=== PATIENT | female | born 1945 | race American Indian/Alaskan Native ===

== ENCOUNTER 2016-09-05 15:32 | Outpatient (CLI) | payer MEDICARE, OTHER | END 2016-09-05 15:33 | disposition home or self-care (01) | LOC: LABHHL 15:32 | PROVIDERS: ATTEND Surgery | DX: N63 Unspecified lump in breast (principal) | CPT/HCPCS: 88305; 88361 ==

== ENCOUNTER 2016-09-16 10:05 | Outpatient (CLI) | payer MEDICARE ==
--- NOTE | 2016-09-16 11:13 | Ultrasound Report ---
BILATERAL BREAST ULTRASOUND: 09/16/16 10:05:00 CLINICAL: Newly diagnosed right breast cancer. She is not a candidate for breast MRI. COMPARISON: 05/30/16 and 08/02/16 mammograms. FINDINGS: Ultrasound of the right breast(including all four quadrants and the retroareolar area) was performed. An irregular hypoechoic shadowing mass at 5 o'clock 4 cm from the nipple measures 8 x 7 x 8 mm and correlates with the recently diagnosed cancer. No other mass or shadowing in the right breast. Ultrasound of the right axilla demonstrated several lymph nodes with central fat and benign morphology. The largest measures 1.2 x 0.6 x 0.8 cm. Ultrasound of the left breast (including all four quadrants and the retroareolar area) was performed and demonstrated normal fibroglandular and fatty structures. No mass, cyst or shadowing. Ultrasound of the left axilla demonstrated several lymph nodes with central fat and benign morphology. The largest measures 1.9 x 0.5 x 0.8 cm. IMPRESSION: 1. Known right breast cancer at 5 o'clock and no additional suspicious lesion of the right breast. 2. Negative left breast. 3. No suspicious lymph nodes. BI-RADS 6 -- Known Cancer
== END 2016-09-16 10:06 | disposition home or self-care (01) ==
LOC: SPVWC 10:05
PROVIDERS: ATTEND Surgery
DX: C50.311 Malignant neoplasm of lower-inner quadrant of right female breast (principal)

== ENCOUNTER 2016-10-09 07:07 | Day surgery (SDC) | payer MEDICARE ==
--- NOTE | 2016-10-04 14:18 | Anesthesia Consultation ---
Anesthesia Consult and Med Hx Date of service: 10/04/16 - Airway Anesthetic Teeth Evaluation: Partials (upper and lower) ROM Head & Neck: Adequate Mental/Hyoid Distance: Adequate Mallampati Class: Class II Intubation Access Assessment: Probably Good - Pulmonary Exam CTA: Yes - Cardiac Exam Cardiac Exam: RRR - Pre-Operative Health Status ASA Pre-Surgery Classification: ASA3 Proposed Anesthetic Plan: General - Pulmonary Hx Smoking: No Hx Asthma: No Hx Sleep Apnea: Yes (+CPAP) - Cardiovascular System Hx Hypertension: Yes (EF 20-25%) Hx Internal Defibrillator: Yes Hx Valvular Heart Disease: Yes (MITRAL INSUFFICIENCY) - Central Nervous System Hx Psychiatric Problems: No - Endocrine Hx Renal Disease: Yes (Stage 3) Hx Insulin Dependent Diabetes: Yes - Hematic Hx Anemia: Yes - Other Systems Hx Cancer: Yes (RIGHT BREAST) Hx Obesity: Yes - Additional Comments Anesthesia Medical History Comments: CARDIAC CLEARANCE ON CHART
[2016-10-04 14:38] LABS: Calcium 9.7 mg/dL (8.4-10.2); Chloride 107.7 mmol/L (98-107); Potassium 4.8 mmol/L (3.6-5.0)
[2016-10-04 14:44] LABS: Basophils % (Auto) 0.8 % (0.0-1.8); Eosinophils % (Auto) 2.9 % (0.0-4.3); Hematocrit 34.7 % (30.3-42.9); Mean Corpuscular HGB Conc 32 % (30-34); Mean Corpuscular Hemoglobin 29 pg (28-32); Mean Corpuscular Volume 91 fl (79-97); Platelet Count 261 K/mm3 (140-440); Red Blood Count 3.82 M/mm3 (3.65-5.03); Red Cell Distribution Width 17.4 % (13.2-15.2); White Blood Count 4.4 K/mm3 (4.5-11.0)
[~2016-10-09 07:07] MED LIST: NACL 0.9% 1000 ML 1,000 ML IV SCH; PEPCID PO NR
[2016-10-09] MEDS ORDERED: NACL BACTERIOSTATIC INFILTRATI ONE (07:36)
[2016-10-09] MEDS ORDERED: MARCAINE 0.25% INFILTRATI ONE (07:42)
[2016-10-09 08:18] VITALS: BP 120/63
== END 2016-10-09 08:12 | disposition home or self-care (01) ==
LOC: OR 07:07
PROVIDERS: ATTEND Surgery
DX: C50.911 Malignant neoplasm of unspecified site of right female breast (principal); Z53.8 Procedure and treatment not carried out for other reasons; G47.30 Sleep apnea, unspecified; E11.22 Type 2 diabetes mellitus with diabetic chronic kidney disease; I12.9 Hypertensive chronic kidney disease with stage 1 through stage 4 chronic kidney disease, or unspecified chronic kidney disease; N18.3 Chronic kidney disease, stage 3 (moderate); D64.9 Anemia, unspecified; E66.9 Obesity, unspecified; Z68.30 Body mass index [BMI] 30.0-30.9, adult; Z95.810 Presence of automatic (implantable) cardiac defibrillator; Z79.899 Other long term (current) drug therapy; Z79.82 Long term (current) use of aspirin; Z79.4 Long term (current) use of insulin; Z88.8 Allergy status to other drugs, medicaments and biological substances
CPT/HCPCS: 36415; 80048; 80061; 83036; 85025; J7030

== ENCOUNTER 2016-12-24 10:45 | Outpatient (CLI) | payer MEDICARE ==
--- NOTE | 2016-12-24 13:51 | Mammography Report ---
BONE DENSITY STUDY: Postmenopausal osteoporosis. DEFINITIONS: BMD = Bone Mineral Density T-score = BMD related to mean peak bone mass of young adult (mean expressed in Standard Deviation) Z-score = Age matched BMD expressed in SD World Health Organization (WHO) Diagnostic Criteria Normal T-score > -1 SD Osteopenia T-score between -1 and -2.4 SD Osteoporosis T-score -2.5 SD or below FINDINGS: The weighted average BMD of lumbar spine L1-L4 is 1.020 with a T-score of -1.2. The weighted average BMD of the left hip is 0.979 with a T-score of -0.3. The BMD of the femoral neck is 0.761 with a T. value score of -1.3. IMPRESSION: The patient's average T-score is diagnostic for osteopenia and average relative risk for fracture. NOTE: BMD is not the only risk factor for fracture; also consider factors such as the patient's age, risk of falling, previous osteoporotic fracture, family history of osteoporotic fractures, current smoker, and low body weight. Benavides's triangle is a region of interest in femur, predominantly of trabecular bone. It is not a true anatomic site, and [facility] does not recommend its use clinically.
== END 2016-12-24 10:46 | disposition home or self-care (01) ==
LOC: SPVWC 10:45
PROVIDERS: ATTEND Surgery
DX: M85.88 Other specified disorders of bone density and structure, other site (principal); C50.311 Malignant neoplasm of lower-inner quadrant of right female breast; Z78.0 Asymptomatic menopausal state
CPT/HCPCS: 77080